=== PATIENT | female | born 2000 | race Caucasian/White ===

== ENCOUNTER 2022-10-29 08:39 | Outpatient (CLI) | payer OTHER, SELFPAY ==
[2022-10-29 14:18] LABS: INR 0.91 (0.91-1.10); Prothrombin Time 12.8 Seconds
== END 2022-10-29 08:40 | disposition home or self-care (01) ==
LOC: FRMREF 08:41
PROVIDERS: PCP Physician Assistant Medical; Visit Provider Physician Assistant Medical
DX: S60.00XA Contusion of unspecified finger without damage to nail, initial encounter (principal)
CPT/HCPCS: 85610

== ENCOUNTER 2023-02-11 08:50 | Outpatient (CLI) | payer OTHER, SELFPAY ==
--- NOTE | 2023-02-11 09:15 | CRLHL7_ITS ---
For Patients: As a result of the Cures Act, medical imaging exams and procedure reports are released immediately into your electronic medical record. You may view this report before your referring provider. If you have questions, please contact your health care provider. INDICATION: First trimester scan, establish dates. COMPARISON: None. TECHNIQUE: Real-time jamison-scale imaging of the pelvis was performed. FINDINGS: Sonographic imaging demonstrates a single living intrauterine gestation. The embryo demonstrates a regular cardiac rate measuring 168 beats per minute. The embryo`s crown-rump length measurement of 3.0 cm corresponds to a gestational age of 9 weeks 6 days with a sonographic due date of 09/10/2023. There is a normal-appearing yolk sac. There are no gross abnormalities noted within the embryo at this early state of development. The gestational sac has a normal appearance. There is an inferior perigestational hemorrhage measuring 1.1 x 1.3 x 2.1 cm. The amount of fluid within the sac appears appropriate for gestational age. The cervix is closed. The myometrium appears normal. The ovaries are of normal size. Corpus luteal cyst left ovary. Trace physiologic free fluid noted. IMPRESSION: Single living intrauterine with sonographic gestational age 9 weeks 6 days and sonographic due date of 09/10/2023. Inferior subchorionic hemorrhage measuring 1.1 x 1.3 x 2.1 cm. Dictated by Ronny Craig MD @ 02/11/2023 9:47:00 AM (Electronically Signed)
== END 2023-02-11 08:51 | disposition home or self-care (01) ==
LOC: US 08:51
PROVIDERS: PCP Physician Assistant Medical; Visit Provider Physician Assistant
DX: Z34.91 Encounter for supervision of normal pregnancy, unspecified, first trimester (principal); O20.9 Hemorrhage in early pregnancy, unspecified; Z3A.09 9 weeks gestation of pregnancy
CPT/HCPCS: 0353U; 76817; 86592; 86703; 86762; 86787; 86803; 86850; 86900; 86901; 87086; 87340; 87491; 87591

== ENCOUNTER 2023-05-05 11:02 | Outpatient (CLI) | payer OTHER, SELFPAY ==
--- NOTE | 2023-05-05 11:00 | CRLHL7_ITS ---
For Patients: As a result of the Century Cures Act, medical imaging exams and procedure reports are released immediately into your electronic medical record. You may view this report before your referring provider. If you have questions, please contact your health care provider. INDICATION: Evaluate anatomy. COMPARISON: 02/11/2023 TECHNIQUE: Real time jamison scale imaging of the fetus was performed as well as color Doppler analysis of the umbilical vessels. FINDINGS: Sonographic imaging demonstrates a single living intrauterine gestation. Fetus demonstrates a regular cardiac rate of 154 beats per minute. Fetus has a breech position. The placenta lies along the right side of the uterus without evidence of placenta previa. The edge of the placenta is located 6.4 cm from the internal cervical os. Amniotic fluid volume appears normal. Single deepest vertical pocket: 5.5 cm. The cervix is closed and measures 3.2 cm in length. The composite ultrasound gestational age is calculated at 21 weeks 6 days with an estimated sonographic due date of 09/09/2023. The estimated weight is 438 grams which lies at the 71st %. The following biometric measurements were obtained: Biparietal diameter: 5.3 cm/22 weeks 1 day 84th% Head circumference: 19.4 cm/21 weeks 4 days 60th% Abdominal circumference: 17.2 cm/22 weeks 1 day 74th% Femur length: 3.5 cm/21 weeks 0 days 35th% The HC/AC ratio measures: 1.13 range (1.06-1.23) On anatomic survey, there is a normal appearance of the cerebral ventricles, cavum septi pellucidi, cisterna magna and cerebellum. The nose, lips, and facial profile appear normal. The cervical, thoracic and lumbar spine are well visualized and appear normal. There is a normal four-chamber heart view and the left and right ventricular outflow tracts appear normal. The diaphragm and stomach appear normal. The kidneys and bladder also appear normal. There is a normal three-vessel cord and there is an eccentric cord insertion site. The four extremities appear normal. IMPRESSION: Normal OB ultrasound exam with concordance of clinical and sonographic dating. No intrinsic abnormalities noted on anatomic survey. Dictated by Ronny Craig MD @ 05/05/2023 12:27:54 PM (Electronically Signed)
== END 2023-05-05 11:03 | disposition home or self-care (01) ==
LOC: US 11:03
PROVIDERS: PCP Physician Assistant Medical; Visit Provider Obstetrics & Gynecology
DX: Z34.92 Encounter for supervision of normal pregnancy, unspecified, second trimester (principal); Z3A.21 21 weeks gestation of pregnancy
CPT/HCPCS: 76805

== ENCOUNTER 2023-06-22 13:30 | Outpatient (CLI) | payer OTHER, SELFPAY | END 2023-06-22 13:31 | disposition home or self-care (01) | LOC: NFLDREF 06-25 10:15 | PROVIDERS: PCP Physician Assistant Medical; Referring Provider Physician Assistant Medical; Visit Provider Advanced Practice Midwife | DX: Z34.90 Encounter for supervision of normal pregnancy, unspecified, unspecified trimester (principal) | CPT/HCPCS: 86592 ==

== ENCOUNTER 2023-08-04 13:25 | Outpatient (CLI) | payer OTHER, SELFPAY | END 2023-08-04 13:26 | disposition home or self-care (01) | LOC: NFLDREF 08-09 11:23 | PROVIDERS: PCP Physician Assistant Medical; Referring Provider Physician Assistant Medical; Visit Provider Registered Nurse | DX: O26.849 Uterine size-date discrepancy, unspecified trimester (principal); Z23 Encounter for immunization | CPT/HCPCS: 82728 ==

== ENCOUNTER 2023-08-10 11:59 | Outpatient (CLI) | payer OTHER, SELFPAY ==
--- NOTE | 2023-08-10 12:15 | CRLHL7_ITS ---
For Patients: As a result of the Century Cures Act, medical imaging exams and procedure reports are released immediately into your electronic medical record. You may view this report before your referring provider. If you have questions, please contact your health care provider. INDICATION: Uterine size-date discrepancy COMPARISON: 05/05/2023 TECHNIQUE: Real time jamison scale imaging of the fetus was performed. FINDINGS: Sonographic imaging demonstrates a single living intrauterine gestation. Fetus demonstrates a regular cardiac rate of 124 beats per minute. Fetus has a vertex position. The placenta lies on the right. Amniotic fluid volume appears normal and there is a single deepest vertical pocket: 4.8 cm. REESE 12.8 cm. The estimated weight is 2300gm which lies at the 19th %. On the prior OB ultrasound exam dated 05/05/2023 the estimated weight was at the 71st%. BPD 67th percentile. HC 34th percentile. AC 16th percentile. FL 10th percentile. HC/AC ratio measures 1.08 range (0.94-1.11). IMPRESSION: Sonographic gestational age 34 weeks 4 days and sonographic due date 09/17/2023. Good correlation with dates. Normal interval growth. Estimated weight 19th percentile. Abdominal circumference 16th percentile. Dictated by Ronny Craig MD @ 08/10/2023 12:56:56 PM (Electronically Signed)
== END 2023-08-10 12:00 | disposition home or self-care (01) ==
LOC: US 11:59
PROVIDERS: PCP Physician Assistant Medical; Visit Provider Registered Nurse
DX: O26.843 Uterine size-date discrepancy, third trimester (principal); Z3A.34 34 weeks gestation of pregnancy
CPT/HCPCS: 76816

== ENCOUNTER 2023-08-18 14:48 | Outpatient (CLI) | payer OTHER, SELFPAY ==
[2023-08-19 15:06] LABS: Strep B DNA Probe Positive (Negative)
[2023-08-19 15:07] LABS: Strep B Susceptibility Needed? No
== END 2023-08-18 14:49 | disposition home or self-care (01) ==
LOC: NFLDREF 14:49
PROVIDERS: PCP Physician Assistant Medical; Visit Provider Obstetrics & Gynecology
DX: Z34.93 Encounter for supervision of normal pregnancy, unspecified, third trimester (principal)
CPT/HCPCS: 87081; 87653

== ENCOUNTER 2023-08-25 11:00 | Outpatient (RCR) | payer OTHER, SELFPAY ==
[2023-08-15 11:03] VITALS: BP 115/71; PULSE 97; RESP 16; TEMP 36.6; O2SAT 100
[2023-08-15] MEDS: IRON SUCROSE COMPLEX 200 MG in 0.9 % SODIUM CHLORIDE 100 ml 440 MG IVPB (11:33)
--- NOTE | 2023-08-15 11:45 | ONC.NURNOTE ---
Patient had a vasovagel response post IV placement. Placed in trendelenberg, cold wash applied, crackers and juice given. Patient recovered within 5 minutes.
[2023-08-15] MEDS: 0.9 % SODIUM CHLORIDE 250 ml IV (12:17)
[2023-08-15] MEDS: SODIUM CHLORIDE 0.9 % (FLUSH) 10 ML SYRINGE IVF (12:17)
[2023-08-15 12:18] VITALS: BP 99/57; PULSE 81; RESP 16; TEMP 36.3; O2SAT 95
--- NOTE | 2023-08-15 14:03 | URNOTE ---
Request received for authorization for Iron Sucrose (Venofer ([id number]). Prior authorization is not required per [facility] request fax confirmed 08/12/2023 10:33.
[2023-08-17 13:52] VITALS: BP 107/71; PULSE 88; RESP 16; TEMP 36.7; O2SAT 98
[2023-08-17 13:57] VITALS: BP 107/71; PULSE 88; RESP 16; TEMP 36.7; O2SAT 98
[2023-08-17] MEDS: SODIUM CHLORIDE 0.9 % (FLUSH) 10 ML SYRINGE IVF (14:15)
[2023-08-17] MEDS: IRON SUCROSE COMPLEX 200 MG in 0.9 % SODIUM CHLORIDE 100 ml 440 MG IVPB (14:26)
[2023-08-17] MEDS: 0.9 % SODIUM CHLORIDE 250 ml IV (14:28)
[2023-08-17 14:55] VITALS: BP 100/67; PULSE 79; RESP 16; TEMP 36.9; O2SAT 97
[2023-08-17 15:28] VITALS: BP 101/62; PULSE 75; RESP 16; TEMP 36.8; O2SAT 97
[2023-08-19 08:43] VITALS: BP 109/70; PULSE 90; RESP 16; TEMP 36.6; O2SAT 97
[2023-08-19] MEDS: 0.9 % SODIUM CHLORIDE 250 ml IV (09:07)
[2023-08-19] MEDS: SODIUM CHLORIDE 0.9 % (FLUSH) 10 ML SYRINGE IVF (09:07)
[2023-08-19] MEDS: IRON SUCROSE COMPLEX 200 MG in 0.9 % SODIUM CHLORIDE 100 ml 440 MG IVPB (09:07)
[2023-08-19 10:15] VITALS: BP 115/73; PULSE 77; RESP 14; TEMP 36.1; O2SAT 99
[2023-08-23 11:06] VITALS: BP 103/69; PULSE 82; RESP 16; TEMP 36.1; O2SAT 98
[2023-08-23] MEDS: 0.9 % SODIUM CHLORIDE 250 ml IV (11:33)
[2023-08-23] MEDS: IRON SUCROSE COMPLEX 200 MG in 0.9 % SODIUM CHLORIDE 100 ml 440 MG IVPB (11:33)
[2023-08-23] MEDS: SODIUM CHLORIDE 0.9 % (FLUSH) 10 ML SYRINGE IVF (11:33)
[2023-08-23 11:59] VITALS: BP 104/62; PULSE 82; RESP 16; TEMP 36.8; O2SAT 98
[2023-08-23 12:25] VITALS: BP 104/73; PULSE 82; RESP 16; TEMP 36.7; O2SAT 98
[2023-08-25 11:13] VITALS: BP 101/62; PULSE 87; RESP 16; TEMP 36.7; O2SAT 98
[2023-08-25] MEDS: 0.9 % SODIUM CHLORIDE 250 ml IV (11:37)
[2023-08-25] MEDS: IRON SUCROSE COMPLEX 200 MG in 0.9 % SODIUM CHLORIDE 100 ml 440 MG IVPB (11:38)
[2023-08-25 12:00] VITALS: BP 101/62; PULSE 76; RESP 18; TEMP 36.5; O2SAT 97
[2023-08-25 12:33] VITALS: BP 102/58; PULSE 76; RESP 16; O2SAT 97
== END 2024-02-11 23:59 | disposition home or self-care (01) ==
LOC: CCIC 11:00
PROVIDERS: PCP Physician Assistant Medical; Referring Provider Physician Assistant Medical; Visit Provider Registered Nurse
DX: O99.019 Anemia complicating pregnancy, unspecified trimester (principal); D50.9 Iron deficiency anemia, unspecified
CPT/HCPCS: 96365; 96374; J1756; J7050

== ENCOUNTER 2023-09-03 20:28 | Outpatient (CLI) | payer OTHER, SELFPAY ==
[2023-09-03 20:47] VITALS: BP 116/66; PULSE 85; RESP 16; TEMP 37.1
[2023-09-03 21:33] LABS: Amnisure Rom* Negative
== END 2023-09-03 21:58 | disposition home or self-care (01) ==
LOC: OB OUT 20:28 → OB 20:43
PROVIDERS: PCP Physician Assistant Medical; Visit Provider Obstetrics & Gynecology
DX: Z34.93 Encounter for supervision of normal pregnancy, unspecified, third trimester (principal); Z3A.39 39 weeks gestation of pregnancy
CPT/HCPCS: 59025; 84112; 99213

== ENCOUNTER 2023-09-09 13:54 | Outpatient (CLI) | payer OTHER, SELFPAY ==
[2023-09-09 14:07] VITALS: BP 116/65; PULSE 82; TEMP 36.4
--- NOTE | 2023-09-09 15:26 | PC.OBNST ---
NST Note NST Note Start: 09/09/23 13:45 Freq: ONCE Status: Discharge Protocol: Document 09/09/23 15:25 [facility] (Rec: 09/09/23 15:26 [facility] [email or web address]) NST Note 1 Para (# of births) 0 EDC 09/14/23 Gestational Age In Weeks & Days 39 Weeks & 2 Days Patient Presented with Complaint(s) of Decreased movement Reactive Yes Appropriate for Gestational Age Yes RN Brenna Sanabria RN Date 09/09/23 Reactive Yes Appropriate for Gestational Age Yes JESÚS Chavira RNC Date 09/09/23 OB NST charge Yes Complete NST Note via Write Note Yes The provider's electronic signature indicates the NST is reactive/appropriate for gestational age. *Note to provider: If an addendum is required, open the patient's chart and click on the note under the Nurse/Allied Health tab.
== END 2023-09-09 15:15 | disposition home or self-care (01) ==
LOC: OB OUT 13:55 → OB 13:56
PROVIDERS: Absent Provider Obstetrics & Gynecology; PCP Physician Assistant Medical; Visit Provider Obstetrics & Gynecology
DX: O36.8130 Decreased fetal movements, third trimester, not applicable or unspecified (principal); Z3A.39 39 weeks gestation of pregnancy
CPT/HCPCS: 59025; 99213

== ENCOUNTER 2023-09-10 10:43 | Inpatient (IN) | payer OTHER, SELFPAY ==
[2023-09-10] VITALS (14 sets, daily range): BP systolic 110–129; BP diastolic 67–76; PULSE 72–171; RESP 14; TEMP 36.8–37.1; O2SAT 82–98; BMI 26.5
[2023-09-10 10:35] LABS: Amnisure Rom* POSITIVE
[2023-09-10 11:40] LABS: Basophils Percent Auto 0.2 % (0.0-3.0); Eosinophils Percent Auto 0.5 % (0.0-7.0); Hematocrit 33.9 % (33.0-51.0); Hemoglobin* 11.3 gm/dL (12.0-16.0); Immature Granulocytes Pct Auto 1.1 %; Lymphocytes Percent Auto 8.3 % (20-44); Mean Corpuscular HGB Conc 33 gm/dL (32-36); Mean Corpuscular Hemoglobin 31 pg (26-34); Mean Corpuscular Volume 91 fL (80-100); Monocytes Percent Auto 5.3 % (0.0-11.0); Neutrophils Percent Auto 84.6 % (42.0-72.0); Platelet Count* 90 K/uL (140-440); Red Blood Count 3.71 m/uL (4.00-5.20); White Blood Count* 12.27 K/uL (4.50-11.00)
[2023-09-10] MEDS: AMPICILLIN 2 GM in 0.9 % SODIUM CHLORIDE Mini-bag 100 ML IVPB (11:40)
[2023-09-10 11:43] LABS: Slide Review Reflex No
[2023-09-10 13:41] LABS: Platelet Count* 77 K/uL (140-440)
--- NOTE | 2023-09-10 14:09 | P.LDBA_ITS ---
Subjective History of Present Illness Date Seen: 09/10/23 Narrative: Patient is being admitted to Labor and Delivery for delivery after SROM this morning at 9am. She is a 23 year old at 39 3/7 weeks gestation. Her full history and physical was dictated by Dr. PALUMBO on . Please see this for details. Specific Issues/Plans . JOSIAH 09/04/23 by LMP, cw 1st trimester US : Brian Lloyd. Baby: Boy. Filiberto Ba H&P by DEEPALI on 08/26/23 1. Asthma, mild. Rare albuterol use 2. History of depression anxiety, currently doing well without treatment 3. History of vaping, quit with positive UPT 4. Rubella nonimmune * MMR 5. Varicella nonimmune * Vaccination 6. Fundal height lagging at 34 weeks. Growth US: Normal interval growth EFW 19 th percentile, AC 16%. 7. 34 weeks: Hemoglobin 9.8, Ferritin 6.6 (Patient never began oral iron supplementation) Iron infusion, completed on 08/25/23 Flu shot: 08/04/2023 COVID vaccinated: yes Tdap: Given, 07/07/23 RSV: 08/18/2023 OB - Problem Based A/P Additional Plan (1) SROM (spontaneous rupture of membranes): Status: Acute Plan 1. Admit for delivery after SROM this morning. GBS positive, start ampicillin per protocol. 2. Due to history of anemia a CBC was collected upon admission and this showed new onset thrombocytopenia, repeat platelet count confirmed down trending thrombocytopenia. No elevated blood pressures, no AIRLINE MANAGER irritability symptoms today or the weeks leading to admission. Will complete HELLP labs. No recent viral like illness symptoms either. At this moment nurses discussed findings with anesthesia and she would not be a candidate for neuraxial anesthesia. Will follow up closely. Will plan to repeat CBC in 2 hours, if platelets continue to downtrend, will ask for platelets since they do take 2-3 hours to arrive to this hospital. OB Result Labs Labs: CBC with platelets of 90,000 repeat at 77,000. OB Exam Physical Exam Vital signs: Temp Pulse BP 98.2 F 98 113/68 09/10/23 11:45 09/10/23 13:54 09/10/23 13:54 Detailed Labor and Delivery Exam Dilation (cm): 4 Effacement (%): 60 Cervix position: anterior Tachysystole: No Contraction intensity: Mild Fetus (Single) Station: -3 Amniotic Membrane Status: SROM Amniotic Membrane Fluid Description: Clear Heart Rate Baseline: 135 Monitor Accelerations: Present Monitor Decelerations: Variable Guest Relations Representative Variability: Moderate (6-25)
[2023-09-10 14:47] LABS: Creatinine* 0.4 mg/dL (0.5-1.5); Est. Creatinine Clearance* 210.89; Estimated Glomerular Filt Rate 142 ml/min
[2023-09-10 14:48] LABS: Alanine Aminotransferase* 13 U/L (4-35); Aspartate Amino Transferase* 42 U/L (12-35); Blood Urea Nitrogen* 8 mg/dL (5-24)
[2023-09-10 15:00] LABS: INR 0.87 (0.91-1.10); Prothrombin Time 12.4 Seconds
[2023-09-10 15:01] LABS: Fibrinogen* 484 mg/dL (200-450); Partial Thromboplastin Time* 29 Seconds (23-33)
[2023-09-10] MEDS: LACTATED RINGERS 1000 ML 1,000 ML 125 ML IV (15:30)
[2023-09-10] MEDS: AMPICILLIN 1 GM in 0.9 % SODIUM CHLORIDE Mini-bag 100 ML IVPB ×2 (15:52→19:20)
[2023-09-10] MEDS: OXYTOCIN 30 unit/500 ML in NS 30 UNIT/500 ML BAG IVPB (15:52)
[2023-09-10 16:47] LABS: Basophils Percent Auto 0.1 % (0.0-3.0); Eosinophils Percent Auto 0.4 % (0.0-7.0); Hemoglobin* 12.1 gm/dL (12.0-16.0); Lymphocytes Percent Auto 7.9 % (20-44); Mean Corpuscular HGB Conc 33 gm/dL (32-36); Mean Corpuscular Hemoglobin 30 pg (26-34); Mean Corpuscular Volume 92 fL (80-100); Monocytes Percent Auto 5.1 % (0.0-11.0); Neutrophils Percent Auto 85.5 % (42.0-72.0); Platelet Count* 77 K/uL (140-440); Red Blood Count 4.04 m/uL (4.00-5.20); White Blood Count* 15.15 K/uL (4.50-11.00)
[2023-09-10 16:48] LABS: Slide Review Reflex No
[2023-09-10 17:02] LABS: Aspartate Amino Transferase* 38 U/L (12-35); Creatinine* 0.4 mg/dL (0.5-1.5); Est. Creatinine Clearance* 210.89; Estimated Glomerular Filt Rate 142 ml/min
[2023-09-10 17:03] LABS: Alanine Aminotransferase* 13 U/L (4-35); Blood Urea Nitrogen* 9 mg/dL (5-24)
[2023-09-10 17:03] LABS: PCR FLU A Negative PCR FLU A (Negative); PCR FLU B Negative PCR FLU B (Negative); PCR RSV Negative PCR RSV (Negative)
[2023-09-10 17:10] LABS: SARS PCR* Negative SARS-CoV-2 (Negative)
[2023-09-10] MEDS: LIDOCAINE 1 % PF 30 ML INJECTION ×2 (19:37→21:40)
--- NOTE | 2023-09-10 20:20 | W.PM.OBVAGDE ---
OB Procedure Vag Delivery Mother Details Mother Details: The patient is a 23 year-old, 1, Para 1, admitted on 09/10/23 at 39 3/7 weeks gestation. Patient with SROM at around 9am this morning. Presented to L&D and AmniSure was found to be positive, admitted for delivery. Due to history of anemia, s/p IV iron infusions we collected a CBC upon admission that showed new onset thrombocytopenia. Patient was deemed not a candidate for epidural by anesthesia. Due to concerns of atypical presentation of hypertensive disorder of recommendation was given to expedite delivery and recommendation given to start IV Oxytocin. : 1 Para: 1 Weeks Gestation: 39.3 Admission Date: 09/10/23 Additional Details Amniotic Membrane Status: SROM Amniotic Membrane Rupture Date: 09/10/23 Amniotic Membrane Rupture Time: 09:00 Amniotic Membrane Fluid Description: Clear Analgesia/Anesthesia Type: Nitrous Oxide Waterbirth: No Pitcoin: Yes Intrapartal Events: Labor Augmentation Induction Method: per pitocin protocol Delivery augmentation: pitocin Labor Onset: 17:00 Complete: 19:03 Pushin:05 Heart: heart tones during second stage were category 2 with deep variables, good recovery in between contractions. Delivery Details Delivery Date: 09/10/23 Delivery Time: 19:23 Route of delivery: Infant Gender: Male Infant Viability: Alive; Heart Rate Present Position at Delivery: OA Delivery Details: Delivered over intact perineum via spontaneous vaginal delivery. was placed on maternal abdomen.? Cord was clamped and cut after a 30-60 second delay. Nose and mouth were bulb suctioned.? weight pending. 1 Minute Interval Total Score: 9 5 Minute Interval Total Score: 9 Additional Details Shoulder Dystocia: No Placenta Delivery Time: 19:42 Placental Delivery Description: Spontaneous (Large blood clot noted at periphery of placenta, suspect placental abruption, will send to pathology) Delivery repair: Vicryl Procedure Done: Global Blood Loss: 100 Laceration: Labial (Right clitoral) Episiotomy Description: None Blood Loss Measurement Type: QBL Bakri Used: No Sponge/Need Count Correct: Yes Cord Vessel Description: 3 Vessels, Nuchal Cord (x2), Loose and Reduced Event Summary Status: Mother and were stable after delivery. Repeat lab work so far not consistent with HELLP syndrome. Will repeat lab work in am, unless significant clinical changes overnight. Disposition: floor
[2023-09-10] MEDS: IBUPROFEN 600 MG TABLET PO (21:38)
[2023-09-11 04:37] LABS: Alanine Aminotransferase* 13 U/L (4-35); Aspartate Amino Transferase* 50 U/L (12-35); Creatinine* 0.4 mg/dL (0.5-1.5); Est. Creatinine Clearance* 210.89; Estimated Glomerular Filt Rate 142 ml/min
[2023-09-11 04:40] LABS: Basophils Percent Auto 0.2 % (0.0-3.0); Hemoglobin* 10.6 gm/dL (12.0-16.0); Immature Granulocytes Pct Auto 1.3 %; Lymphocytes Percent Auto 5.3 % (20-44); Mean Corpuscular HGB Conc 33 gm/dL (32-36); Mean Corpuscular Hemoglobin 30 pg (26-34); Mean Corpuscular Volume 91 fL (80-100); Monocytes Percent Auto 4.5 % (0.0-11.0); Neutrophils Percent Auto 88.7 % (42.0-72.0); Platelet Count* 77 K/uL (140-440); RDW Coefficient of Variation % 15.2 % (11.5-15.5); White Blood Count* 20.36 K/uL (4.50-11.00)
[2023-09-11 04:42] LABS: Slide Review Reflex No
[2023-09-11] MEDS: IBUPROFEN 600 MG TABLET PO ×3 (04:48→19:37)
[2023-09-11 05:04] VITALS: BP 113/72; PULSE 63; RESP 17; TEMP 36.8; O2SAT 97
[2023-09-11 05:07] LABS: Fibrinogen* 439 mg/dL (200-450)
[2023-09-11 09:00] VITALS: BP 111/69; PULSE 76; RESP 16; TEMP 36.8; O2SAT 97
--- NOTE | 2023-09-11 10:12 | PM.OBPNVD1 ---
OB - PN:Subj Subjective Date Seen: 09/11/23 Patient comments OB post-: pain well controlled and tolerating diet [place] status: and doing well [place] feeding status: exclusively Narrative: Jericho is a 23 y.o. who was admitted to L & D for delivery after SROM. ?She had an uncomplicated spontaneous vaginal delivery.?The patient feels well. ?The pain is well controlled with current medications. ?She has no new complaints. ?She is breast feeding and reports things are going well.? the patient has done well.? Vitals have been stable.? She has remained afebrile.? Has a good appetite, is tolerating a general diet. ?She is voiding without difficulty.? She is passing gas and has not had a bowel movement. Patient does report that last night she had 2 episodes heavier bleeding, passage of a golf sized blood clot. Patient states that blood always makes her little bit dizzy, so she felt a little bit lightheaded while urinating. Patient currently states that bleeding has significantly decreased in amount and that she was able to urinate and walk around the room on her own this morning without any lightheadedness, shortness of breath.? OB - PN: Obj Exam Physical Exam: Vital signs: Temp Pulse Resp BP Pulse Ox O2 Del Method 98.3 F 76 16 111/69 97 Room Air 09/11/23 09:00 09/11/23 09:00 09/11/23 09:00 09/11/23 09:00 09/11/23 09:00 09/11/23 09:00 Narrative: VITAL SIGNS: As noted above. GENERAL APPEARANCE: Alert, cooperative female in no acute distress. MOOD & AFFECT: Normal. ABDOMEN: Soft, non-distended and appropriately tender, uterus well contracted umbilicus. : Minimal spotting. EXTREMITIES: Nonedematous. Well perfused. Nontender. OB - PN: Obj Data Labs Labs: Laboratory Results - last 24 hr 09/10/23 09/10/23 09/10/23 10:28 11:30 13:30 WBC 12.27 H RBC 3.71 L Hgb 11.3 L Hct 33.9 MCV 91 MCH 31 MCHC 33 RDW Coeff of Marcelina 15.0 Plt Count 90 L 77 L Neut % (Auto) 84.6 H Lymph % (Auto) 8.3 L Lake % (Auto) 5.3 Eos % (Auto) 0.5 Baso % (Auto) 0.2 Neut # (Auto) 10.40 H Lymph # (Auto) 1.00 Lake # (Auto) 0.70 Eos # (Auto) 0.10 Baso # (Auto) 0.00 Abs Immat Gran (auto) 0.10 Imm/Tot Granulo (auto) 1.1 INR APTT Fibrinogen BUN Creatinine Estimated Creat Clear Estimated GFR AST ALT Membrane Rupture POSITIVE SARS-CoV-2 (PCR) Influenza Type A (PCR) Influenza Type B (PCR) RSV (PCR) Blood Type O Positive Antibody Screen NEGATIVE Crossmatch ([facility]) See Detail 09/10/23 09/10/23 09/10/23 14:25 16:20 16:35 WBC 15.15 H RBC 4.04 Hgb 12.1 Hct 37.0 MCV 92 MCH 30 MCHC 33 RDW Coeff of Marcelina 15.0 Plt Count 77 L Neut % (Auto) 85.5 H Lymph % (Auto) 7.9 L Lake % (Auto) 5.1 Eos % (Auto) 0.4 Baso % (Auto) 0.1 Neut # (Auto) 13.00 H Lymph # (Auto) 1.20 Lake # (Auto) 0.80 Eos # (Auto) 0.10 Baso # (Auto) 0.00 Abs Immat Gran (auto) 0.20 Imm/Tot Granulo (auto) 1.0 INR 0.87 L APTT 29 Fibrinogen 484 H BUN 8 9 Creatinine 0.4 L 0.4 L Estimated Creat Clear 210.89 210.89 Estimated GFR 142 142 AST 42 H 38 H ALT 13 13 Membrane Rupture SARS-CoV-2 (PCR) Negative SARS-CoV-2 Influenza Type A (PCR) Negative PCR FLU A Influenza Type B (PCR) Negative PCR FLU B RSV (PCR) Negative PCR RSV Blood Type Antibody Screen Crossmatch ([facility]) 09/11/23 04:12 WBC 20.36 H RBC 3.50 L Hgb 10.6 L Hct 32.0 L MCV 91 MCH 30 MCHC 33 RDW Coeff of Marcelina 15.2 Plt Count 77 L Neut % (Auto) 88.7 H Lymph % (Auto) 5.3 L Lake % (Auto) 4.5 Eos % (Auto) 0.0 Baso % (Auto) 0.2 Neut # (Auto) 18.10 H Lymph # (Auto) 1.10 Lake # (Auto) 0.90 Eos # (Auto) 0.00 Baso # (Auto) 0.00 Abs Immat Gran (auto) 0.30 Imm/Tot Granulo (auto) 1.3 INR APTT Fibrinogen 439 BUN Creatinine 0.4 L Estimated Creat Clear 210.89 Estimated GFR 142 AST 50 H ALT 13 Membrane Rupture SARS-CoV-2 (PCR) Influenza Type A (PCR) Influenza Type B (PCR) RSV (PCR) Blood Type Antibody Screen Crossmatch ([facility]) OB - PN: A/P Delivery Assessment and Plan (1) Spontaneous vaginal delivery: Status: Acute (2) Thrombocytopenia: Status: Acute Assessment and Plan: Lab work repeated this morning, hemoglobin at 10.6 appropriate for . Platelets remain stable at 77,000 seven thousand. Slight decrease of fibrinogen but still consider within normal limits and no concerns with persistent bleeding at the moment. AST slightly elevated again this morning, not doubled. Vital signs continue to be within normal limits. (3) Placental abruption affecting delivery: Status: Acute Plan Will continue close monitoring of vital signs, bleeding, ambulation throughout the day. Patient will continue to work with . I will plan to repeat labs tomorrow morning, make sure that liver enzymes do not double. At this moment there is no evidence of atypical HELLP or severe preeclampsia. Infectious lab work negative. At this moment, evidence most consistent with diagnosis of placental abruption with coagulation lab changes, no clinical evidence of DIC. Will continue to monitor closely. Plan day: 1 Plan: routine care
[2023-09-11 12:30] VITALS: BP 109/66; PULSE 68; RESP 16; O2SAT 98
[2023-09-11 15:30] VITALS: BP 111/66; PULSE 78; RESP 16; O2SAT 98
[2023-09-11] MEDS: MEASLES,MUMPS,RUBELLA VACC/PF 1 DOSE INJ 1 EACH SUBCUT (19:38)
[2023-09-11 23:45] VITALS: BP 110/71; PULSE 63; RESP 16; TEMP 36.6; O2SAT 97
[2023-09-12] MEDS: IBUPROFEN 600 MG TABLET PO (05:04)
[2023-09-12 05:06] VITALS: BP 113/76; PULSE 63; RESP 17; TEMP 36.5; O2SAT 97
[2023-09-12 06:13] LABS: Basophils Percent Auto 0.2 % (0.0-3.0); Eosinophils Percent Auto 0.8 % (0.0-7.0); Hematocrit 30.1 % (33.0-51.0); Hemoglobin* 9.7 gm/dL (12.0-16.0); Immature Granulocytes Pct Auto 0.7 %; Lymphocytes Percent Auto 10.7 % (20-44); Mean Corpuscular HGB Conc 32 gm/dL (32-36); Mean Corpuscular Hemoglobin 30 pg (26-34); Mean Corpuscular Volume 94 fL (80-100); Monocytes Percent Auto 5.8 % (0.0-11.0); Neutrophils Percent Auto 81.8 % (42.0-72.0); Platelet Count* 67 K/uL (140-440); RDW Coefficient of Variation % 15.4 % (11.5-15.5); Red Blood Count 3.19 m/uL (4.00-5.20); White Blood Count* 15.09 K/uL (4.50-11.00)
[2023-09-12 06:18] LABS: Slide Review Reflex No
[2023-09-12 06:26] LABS: Alanine Aminotransferase* 12 U/L (4-35); Aspartate Amino Transferase* 39 U/L (12-35); Blood Urea Nitrogen* 13 mg/dL (5-24); Creatinine* 0.5 mg/dL (0.5-1.5); Est. Creatinine Clearance* 168.72; Estimated Glomerular Filt Rate 134 ml/min
[2023-09-12 06:39] LABS: Fibrinogen* 381 mg/dL (200-450)
[2023-09-12 07:50] VITALS: BP 95/59; PULSE 63; RESP 18; TEMP 36.3
--- NOTE | 2023-09-12 08:32 | P.DS_ITS ---
DS: Providers Provider Date Seen: 09/12/23 Date of admission: 09/10/23 10:43 Primary care physician: Yojana Wallace PA-C Admitting Clinician: Sabina Johnson MD Attending Physician on discharge: Lana Webb APRN, PEGGY DS: Diagnosis Discharge Diagnosis (1) care and examination immediately after delivery: Status: Acute (2) Lactating mother: Status: Acute Problem details: Attempting to breastfeed, currently producing minimal amounts of colostrum (3) Thrombocytopenia: Status: Acute Exam Narrative: Exam Narrative: GENERAL APPEARANCE:? normal affect, alert, no distress, pale MOOD:? appropriate CHEST:? clear to auscultation HEART:? regular rate and rhythm ABDOMEN:? soft, non-tender the uterine fundus is 1 below Umbilicus, Midline and is appropriate for the stage of recovery. PERINEUM:? mild edema of the perineum, there is a labial laceration, that is healing well. EXTREMITIES:? normal and no edema Const: Vital Signs, click to edit/add: Vital Signs - 24 hr 09/11/23 09:00 09/11/23 12:30 09/11/23 15:30 Temperature 98.3 F Pulse Rate [Pulse Oximeter] 76 68 78 Respiratory Rate 16 16 16 Blood Pressure [Ri ght Arm] 111/69 109/66 111/66 Pulse Oximetry 97 98 98 Oxygen Delivery Me thod Room Air Room Air Room Air 09/11/23 23:45 09/12/23 05:06 09/12/23 07:50 Temperature 97.9 F 97.7 F 97.3 F L Pulse Rate [Pulse Oximeter] 63 63 63 Respiratory Rate 16 17 18 Blood Pressure [Ri ght Arm] 110/71 113/76 95/59 L Pulse Oximetry 97 97 Oxygen Delivery Me thod Room Air Room Air Room Air Documenting provider has reviewed patient's vital signs: yes OB - DS: Summary Hospital Course Hospital Course: Jericho is a 23 y.o. G 1 P 1 who was admitted to L & D for SROM with spontaneous labor. ?She had a NVD that was complicated by suspected placenta abruption The patient feels well. ?The pain is well controlled with current medications. ?She has no new complaints. ?She is breast feeding and reports things are going ok, she does not have a lot of colostrum so they are supplementing with donor milk and formula. the patient has done well.? Vitals have been stable.? She has remained afebrile.? Has a good appetite, is tolerating a general diet. ?She is voiding without difficulty.? She is passing gas and has not had a bowel movement.? She is ambulating and denies any dizziness.? Has small amount of rubra lochia. She is planning nexplanon for prevention. Problems: Thrombocytopenia, etiology unknown plan: Discharge home with baby. Follow up in 2 weeks [address] Pablo. AST is trending down, Plts are now 67,000. She recommends follow-up labs at 2 weeks and 6 weeks and consult to hematology if the thrombocytopenia continues for further work-up. There is a note from Sep 2022 that patient was seen for bruising of hands and platelets were 132,000 at that time. No know family history of clotting disorders, although her father is adopted. Bleeding precautions reviewed with patient. , may see if needed Hgb 9.7. Iron supplement ordered orally every other day Peripartum Data Infant delivery method: Vaginal Laceration description: Labial complications: none Lucas Gender: Male Infant Discharge Plan: Home Status at Discharge Functional status at discharge: independent ambulation Overall status at discharge: patient is progressing back to baseline Time Spent with Patient Time attestation: Total time spent providing and/or coordinating discharge services: Discharge Plan Discharge Disposition: Home, Self-Care Date of Admission: 09/10/23 10:43 Attending Provider on Discharge: Lana Webb Primary Care Provider: Yojana Wallace Condition: Stable Anticipated Discharge Date/Time: 09/12/23 12:00 Discharge Medications: New ferrous sulfate 325 mg (65 mg iron) tablet,delayed release (DR/EC) 325 mg PO Q OTHER DAY Qty: 90 0RF acetaminophen 500 mg Tablet 1,000 mg PO Q6H PRNQty: 0 0RF docusate sodium 100 mg Capsule 100 mg PO DAILY Qty: 90 0RF ibuprofen 600 mg Tablet 600 mg PO Q6H PRNQty: 60 0RF Continued prenat.vits,shirley,[id number] Tablet 1 tab PO QDAY magnesium oxide 500 mg capsule 500 mg PO QDAY Discharge Orders: Discharge Order (Routine); Ordered 09/12/23 Ordered By: Lana Webb Patient Education: OB Over the Counter Medication Information, OB Vaginal/Breast Feeding Additional Instructions: Discharge instructions were reviewed with the patient including signs and symptoms of infection and home going medications Nothing vaginally for 6 weeks: no tampons or intercourse Do not drive while taking narcotic pain medication(s) Off Work or School for 8 weeks 2-week visit: discuss infant feeding concerns, review control options and screen for anxiety/depression. 6-week visit for an annual exam. consultation services are available to all mothers and babies for the first year after delivery.? To make an appointment, please call [phone]. Activity Level: Activity as Tolerated Discharge Diet: Regular Follow Up Appointments: [facility] [Provider Group] Forms: [facility] Info Instructions
== END 2023-09-12 09:32 | disposition home or self-care (01) | DRG 807 ==
LOC: OB OUT 10:43 → OB 10:43
PROVIDERS: Nurse Anesthetist, Certified Registered; Admitting Provider Obstetrics & Gynecology; PCP Physician Assistant Medical; Visit Provider Obstetrics & Gynecology
DX: O99.824 Streptococcus B carrier state complicating childbirth (principal); Z37.0 Single live birth; O99.12 Other diseases of the blood and blood-forming organs and certain disorders involving the immune mechanism complicating childbirth; D69.6 Thrombocytopenia, unspecified; O99.344 Other mental disorders complicating childbirth; F32.A Depression, unspecified; F41.9 Anxiety disorder, unspecified; Z3A.39 39 weeks gestation of pregnancy
CPT/HCPCS: 36415; 82565; 84112; 84450; 84460; 84520; 85025; 85049; 85384; 85610; 85730; 86850; 86900; 86901; 86922; 87631; 88307; A9270; J0290; J2001; J7120

== ENCOUNTER 2023-09-14 08:32 | Outpatient (CLI) | payer OTHER, SELFPAY ==
--- NOTE | 2023-09-14 17:00 | W.PM.LAC.MC ---
Consult Note - Mom Date of Visit Date of visit: 09/14/23 industrial rehabilitation consultant: Sonja Retana Visit Code: Visit Patient's Information Phone number: [phone] : 1 Para: 1 Allergies No Known Drug Allergies Allergy (Verified 09/07/23 10:19) Mother's Medical History: Medical History (Updated 09/15/23 @ 00:00 by Background Daemon) Placental abruption affecting delivery ?O45.90 - Premature separation of placenta, unspecified, unspecified trimester (ICD-10) Spontaneous vaginal delivery ?O80 - Encounter for full-term uncomplicated delivery (ICD-10) Work Plans: Returns to work at a daycare in 9 weeks Delivery Information Delivery type: Vaginal Weeks Gestation: 39.3 Gestational Age: AGA Weight: 2.91 kg Discharge Weight: 2.834 kg Baby's Information Baby's Age at Visit: 4 days Baby's Provider or Clinic: Dr. Velasquez Jaundice: No Reason for Consult Reason for Consult: difficulty latching Past Experience Past Experience: No Current Frequency of Day Feedings: every 1.5 - 3 hours around the clock Frequency of Night Feedings: cluster fed last night Both Breasts: Yes (mom offered but wasn't able to latch) Pumping Pumping: Yes (with every feeding) Quantity Pumped: has increased slowly from drops to 30 ml total Supplementing EMB Supplement: Yes (baby has been given .5 - 1 oz EBM/formula with every feeding) Formula Supplement: Yes Baby Elimination Number of Wet Diapers a Day: has not had a wet diaper or BM since 8:00 pm on 09/13 Breast/Nipple Condition Breast Information: WNL Maternal Nipple Condition - Left: Common Nipple Maternal Nipple Condition - Right: Common Nipple Onsite Pre-Feed weight: 2.814 kg Post-Feed weight: 2.828 kg Milk Transferred (mL): 14 Assessments/Interventions Assessments/Interventions: Met with mom and this now 4 day old ex- term AGA baby for consult. Mom reports she wasn't able to latch him in the hospital and has been trying with most feedings at home, but baby ends up only taking a few suckles at most, then gets upset or falls asleep. POC have been feeding him EBM/formula every 1.5 - 3 hours and have slowly increased the amount. With his last few feedings he's had 30 ml. Mom has been pumping with a Zomee pump with almost every feeding and her supply has also slowly increased. With the last few pumping sessions she's gotten 30 ml total. Breasts WNL- symmetrical with rounded lower quadrants, intramammary distance < 1.5 inches, no engorgement noted. Nipples are everted and don't flatten or retract on compression, no damage noted. Baby has not begun to gain weight from D/C and is 3% below BW at 4 DOL. POC deny any caput/cephalohematoma and report he seems to have equal ROM when turning his head or moving his extremities. His palate is a little high. His upper frenulum is a little tight as noted by blancing gums when the upper lip is flanged. He has a strong suck on a finger but the tongue doesn't extend past the gumline consistently. The tongue has good lateral movement with very little canoeing but when baby cries it tilts to the right. The lower frenulum looks to be a little anterior. He appears to have a bit of a receding chin. POC report baby hasn't had a wet or dirty diaper since 8 pm last night and when he did have a wet diaper they observed uric acid crystals. In the cross cradle position, mom attempted to latch baby to the right side and even though she had great positioning and was trying to bring him to her nipple to nose, baby didn't seem to sense the breast was in his mouth. There was no improvement when she tried the cradle and the football hold. A nipple shield was applied and after a few attempts baby was able to start suckling. He needed a lot of stimulation to stay awake so after a few minutes was switched to the left side. After a few attempts with the nipple shield, baby latched and nursed with stimulation for about 10 minutes. He came off on his own and milk was seen in the shield. Mom offered the right side again and baby nursed for another 10 minutes. He transferred 14 ml. He still seemed hungry so while dad paced fed 15 ml formula, mom was measured and flange sizes were discussed. We then tried to practice an exercise to teach baby to extend his tongue past the gum line but he was too sleepy. Also showed POC the guppy stretch. Plan: 1. Continue practicing latching baby with every feeding. Suggested mom use the nipple shield for a few days, then she can try weaning from it over the weekend. Instructed her to offer both sides at each feeding and to keep him awake and actively nursing for at least 10 minutes. Reviewed mom should see milk in the shield after each nursing session. 2. Suggested POC offer 15 - 30 ml EBM after nursing if baby still seems hungry. Tried to reassure mom that this was one of baby's first successful nursing sessions. As he gets better, he should take more milk from the breast and should be able to wean from the supplementation. 3. Instructed mom to pump at least 4 times/day for now as well as after a poor feeding or if she doesn't see milk in the shield after a nursing session. This can be re-evaluated as he does better at the breast. 4. Suggested dad try the exercise and stretch 3 - 5 times/day. 5. Baby had a wet diaper in clinic. We discussed that uric acid crystals are a sign of some dehydration. Now that he is getting a larger volume of EBM/formula, this should resolve and he should also start having increased BM's. 5. Baby has NB visit today. Will f/u by phone on 09/19 to see how things are going. If mom is still struggling will suggest body work therapy and/or pediatric dental evaluation. Meds Home Medications and Allergies Home Medications Medication Instructions Recorded Confirmed Type prenat.vits,shirley,[id number] 1 tab PO QDAY 02/11/23 09/07/23 History magnesium oxide 500 mg capsule 500 mg PO QDAY 08/18/23 09/07/23 History Allergies Allergy/AdvReac Type Severity Reaction Status Date / Time No Known Drug Allergies Allergy Verified 09/07/23 10:19
== END 2023-09-14 08:33 | disposition home or self-care (01) ==
LOC: OB LAC 08:33
PROVIDERS: PCP Physician Assistant Medical; Visit Provider Obstetrics & Gynecology
DX: Z39.1 Encounter for care and examination of lactating mother (principal)
CPT/HCPCS: 99211